=== PATIENT | female | born 1985 ===

== ENCOUNTER 2019-11-09 13:15 | Inpatient (IN) | payer OTHER ==
[~2019-11-09] VITALS: Ht 152.4 cm; Wt 54.4 kg
[2019-11-12] MEDS ORDERED: FOLIC ACID1 MG PO (15:06)
[2019-11-12] MEDS ORDERED: FEOSOL325 MG PO (15:07)
[2019-11-12] MEDS ORDERED: MULTIPLE VITAM1 EACH PO (15:07)
== END 2019-11-17 12:12 | disposition home or self-care (01) | DRG 743 ==
LOC: OB/GYN 11-15 05:41 → O/R 11-15 05:41 → SURH 11-15 10:15 → OB/GYN 11-15 11:05 → SURH 11-15 13:15 → O/R 11-15 13:15 → OB/GYN 11-16 10:30
PROVIDERS: ADMIT Obstetrics & Gynecology Gynecologic Oncology
PROC: 0UB90ZZ Excision of Uterus, Open Approach (ICD-10-PCS; principal; 2019-11-15 10:15)
DX: D25.1 Intramural leiomyoma of uterus (principal); D25.2 Subserosal leiomyoma of uterus